=== PATIENT | male | born 1965 | race Caucasian/White ===

== ENCOUNTER 2017-08-14 09:07 | Emergency (ER) | payer OTHER ==
[~2017-08-14] VITALS: Ht 185.4 cm; Wt 92.0 kg
[2017-08-14 09:09] VITALS: BP 129/66
[2017-08-14] MEDS ORDERED: LIDOCAINE 1%, 20ML ONE (09:26)
[2017-08-14] MEDS ORDERED: LIDOCAINE 1%, 20ML SQ ONE (09:30)
[2017-08-14] MEDS ORDERED: BACITRACIN ZINC OINT 500U/GM, 0.9 GM ONE ×2 (09:53→10:06)
== END 2017-08-14 10:12 | disposition home or self-care (01) ==
LOC: ED 10:06
DX: L03.011 Cellulitis of right finger (principal); Z87.891 Personal history of nicotine dependence
CPT/HCPCS: 10060; 99283; J3490